=== PATIENT | male | born 1990 | race Two or more races ===

== ENCOUNTER → 2019-02-21 | Outpatient (CLI) | payer OTHER ==
[~2019-02-21] VITALS: Ht 185.4 cm; Wt 97.5 kg
[~2019-02-21] MED LIST: METO-239 PO; OMEP20CA10 PO; SINCALIDE 1.96 MCG in IV NORMAL SALINE 50ML 30 ML IV ONE
--- NOTE | 2019-02-21 08:36 | RAD ---
ABDOMEN LTD: 02/21/2019 7:30 AM Indication: 28 years old Male. Right upper quadrant abdominal pain with nausea and vomiting. Comparison: None. TECHNIQUE: Sonographic evaluation of the right upper quadrant was performed utilizing grayscale and color Doppler imaging. FINDINGS: Liver: Homogenous normal echotexture.. There is hepatopedal flow within the portal venous system. Right hepatic lobe measures 15.8 cm. Biliary system: CBD measures 5 mm. There is no intrahepatic or extrahepatic biliary dilatation. Gallbladder: No gallstones, wall thickening or pericholecystic fluid. . Sonographic Mckeon sign: Negative Pancreas: Poorly visualized. Right kidney: 11.0 x 5.0 x 5.3 cm. No hydronephrosis. Normal echotexture without focal mass or renal calculus. Free fluid:None. IMPRESSION: No cholelithiasis or sonographic evidence for acute cholecystitis. Electronically signed by: Tyra Mahoney MD (02/21/2019 8:33 AM) [facility]
--- NOTE | 2019-02-21 10:49 | RAD ---
EXAM: HEPATOBILIARY SCINTIGRAPHY WITH GALLBLADDER EJECTION FRACTION CALCULATION. HISTORY: Abdominal pain/nausea. TECHNIQUE: 5.5 mCi technetium-99m Choletec were administered intravenously and scintigraphic images of the abdomen obtained. After filling of the gallbladder, 1.96 mcg of sincalide were infused and the gallbladder ejection fraction calculated. FINDINGS: There is prompt hepatic clearance of tracer from the blood pool. There is homogeneous distribution throughout the liver. There is normal filling of the gallbladder and clearance into the biliary tree and small bowel. The gallbladder ejection fraction is 77% (normal >35%). IMPRESSION: 1. Normal gallbladder ejection fraction. Electronically signed by: Shaun Woodall MD (02/21/2019 10:46 AM) [facility]
== END | disposition home or self-care (01) ==
LOC: US 07:13
PROVIDERS: ATTEND Internal Medicine Gastroenterology
DX: R10.13 Epigastric pain (principal); R11.2 Nausea with vomiting, unspecified
CPT/HCPCS: 76705; 78227; A9537; J2805